=== PATIENT | male | born 1940 | race Caucasian/White ===

== ENCOUNTER → 2020-02-24 15:57 | Outpatient (BNVA) | payer MEDICARE, OTHER, SELFPAY | PROVIDERS: Family Provider Family Medicine; Visit Provider Specialist | DX: G30.9 Alzheimer's disease, unspecified (principal); F02.80 Dementia in other diseases classified elsewhere, unspecified severity, without behavioral disturbance, psychotic disturbance, mood disturbance, and anxiety; E85.4 Organ-limited amyloidosis; I68.0 Cerebral amyloid angiopathy; Z87.891 Personal history of nicotine dependence | CPT/HCPCS: 96116; 99213 ==

== ENCOUNTER 2020-05-28 12:22 | Emergency (ER) | payer MEDICARE, OTHER, SELFPAY ==
[2020-05-28] VITALS (7 sets, daily range): BP systolic 172–270; BP diastolic 90–140; PULSE 65–92; RESP 14–21; O2SAT 91–94; BMI 26.5
--- NOTE | 2020-05-28 12:10 | CTR_ITS ---
PROCEDURE INFORMATION: Exam: CT Head Without Contrast Exam date and time: 05/28/2020 12:10 PM Age: 79 years old Clinical indication: Coma or unconsciousness; Additional info: Stroke symptoms TECHNIQUE: Imaging protocol: Computed tomography of the head without contrast. Radiation optimization: All CT scans at this facility use at least one of these dose optimization techniques: automated exposure control; mA and/or kV adjustment per patient size (includes targeted exams where dose is matched to clinical indication); or iterative reconstruction. COMPARISON: CT head wo con* [id number] 12/29/2018 3:10 PM RADIATION DOSE METRICS: Total DLP (mGy-cm): 735.83 FINDINGS: Brain: There is an acute high density hematoma in the left cerebellar hemisphere with a volume of approximately 48 mL. There is significant mass effect with about 16 mm of cerebellar midline shift to the right side. There is generalized chronic atrophy with prominence of the ventricles and sulci. There is extensive decreased white matter density indicating chronic small vessel white matter ischemia. No definite intraventricular hemorrhage is seen. Cerebral ventricles: Ventricles are prominent due to chronic atrophy.. Bones/joints: Unremarkable. No acute fracture. Paranasal sinuses: Visualized sinuses are unremarkable. No fluid levels. Mastoid air cells: Visualized mastoid air cells are well aerated. Soft tissues: Unremarkable. CT/CT head wo con* [id number] IMPRESSION: There is a large acute left cerebellar hematoma measuring about 48 mL in volume with prominent mass effect and about 16 mm of cerebellar midline shift to the right side. Radiation Dose CTDIVOL = (mGy): DLP = 735.83 (mGy-cm)
--- NOTE | 2020-05-28 12:18 | ECG_ITS ---
[facility] Test Date: 2020-05-28 Pat Name: Chuy Hernandez Department: Room: Gender: Male Ribbon Tier: : 1940 Requested By: Thomas Coleman Order Number: [id number] Michelle MD: Momo Hayes M.D. Measurements Intervals [place] Rate: 70 P: 52 [place]: 189 QRS: -14 QRSD: 122 T: 39 QT: 421 QTc: 455 Interpretive Statements SINUS RHYTHM WITH OCCASIONAL VENTRICULAR PREMATURE COMPLEXES MODERATE INTRAVENTRICULAR CONDUCTION DELAY [110+ ms QRS DURATION] MODERATE ST DEPRESSION [0.05+ mV ST DEPRESSION] No previous ECG available for comparison Electronically Signed On 05-28-2020 19:24:56 BRINE SUPERVISOR by Momo Hayes M.D. [id number] f
--- NOTE | 2020-05-28 12:18 | XRR_ITS ---
PROCEDURE INFORMATION: Exam: XR Chest, 1 View Exam date and time: 05/28/2020 12:28 PM Age: 79 years old Clinical indication: Device placement; Other: Et and ng placement; Additional info: Dyspnea TECHNIQUE: Imaging protocol: XR of the chest Views: 1 view. COMPARISON: CR [place] Ribs RIGHT 04/11/2016 11:45 AM FINDINGS: Tubes, catheters and devices: An endotracheal tube is present with its tip at the T2-3 level about 10 cm above the ritika. A nasogastric tube is present with the tip projecting near the gas which soft Geodon marshall and should be advanced several cm further into the stomach. Lungs: See Pleural spaces finding. Pleural spaces: There is right basilar atelectasis with blunting of the right costophrenic angle. Mild atelectasis is present in the left base. Small effusion blunts the right costophrenic angle. Heart/Mediastinum: The cardiac silhouette is enlarged. Bones/joints: Unremarkable. XR/XR chest 1V portable [id number] IMPRESSION: 1. The tip of the endotracheal tube is 10 cm above the ritika. 2. The tip of the nasogastric tube is at the level of the GE junction and further advancement into the stomach is advised. 3. Right basilar atelectasis with small right effusion.
[2020-05-28 12:24] LABS: Glucose Point of Care 212 mg/dL (70-110)
[2020-05-28] MEDS: succinylcholine 20 mg/mL SDV 10mL 100 MG IVP (12:25)
--- NOTE | 2020-05-28 12:36 | PC.NURSE ---
time out completed at [address] english intubated at 1226 with 8.0 ett. Nurse administered etomidate (20mg) and succinylocholine (100mg) immediately prior to intubation.
[2020-05-28 12:37] LABS: ABG PCO2 45.5 mmHg (35-45); Base Excess ABG 2.3 mmol/L (-2.0-2.0); Blood Gas Allen Test Pos; Blood Gas Operator Identificat MONRO; Blood Gas Sample Site Radial, right; Blood Gas Sample Type Arterial; Carboxyhemoglobin 0.4 %THgb (0.4-20.1); HCO3 ABG 27.9 mmol/L (22-26); HGB O2 Sat 99.7 % (95-100); Ionized Calcium Level - ABG 1.2 mmol/L (1.1-1.4); Methemoglobin 0.3 % (0.4-1.5); Oxygen Device AMBU; Oxygen Saturation ABG > 100.0; Potassium Level - ABG 3.2 mmol/L (3.5-5.0); Total Hemoglobin 15.7 g/dL (14-18)
[2020-05-28 12:39] LABS: Basophils # 0.1 10^3/uL (0.0-0.1); Basophils % 0.5 %; Eosinophils # 0.2 10^3/uL (0.0-0.8); Eosinophils % 1.9 %; Hematocrit 44.6 % (42.0-52.0); Hemoglobin 14.9 g/dL (11.7-16.6); Lymphocytes # 1.5 10^3/uL (0.8-4.8); Lymphocytes % 11.8 %; Mean Corpuscular HGB Conc 33.4 g/dL (30.0-36.0); Mean Corpuscular Hemoglobin 30.7 pg (28.0-34.0); Monocytes # 0.9 10^3/uL (0.2-0.9); Monocytes % 6.9 %; Neutrophils # 10.01 10^3/uL (1.8-7.7); Neutrophils % 78.4 %; Nucleated Red Blood Cells % 0 %; Platelet Count 239 10^3/cmm (130-400); Red Blood Count 4.85 10^6/uL (4.1-5.3); Red Cell Distribution Width 12.7 % (12.1-15.1); White Blood Count 12.8 10^3/uL (4.0-10.0)
[2020-05-28] MEDS: propofol 1,000 MG/100 ML INJ 16 MG (12:40)
[2020-05-28] MEDS: nicardipine 20 MG/200 ML PREMIX 50 MG IV (12:40)
--- NOTE | 2020-05-28 12:42 | W.ED.NEUROSD ---
HPI - Neuro Symptoms/Deficit General: Chief Complaint: Neuro Symptoms/Deficit Stated Complaint: stroke alert History of Present Illness: HPI Narrative: The patient is a 79-year-old male with past medical history TIAs, diabetes, hypertension who comes to the ER today with a stroke alert. He is generally weak with a right fixed gaze minimally responsive and sleepy. He has a left-sided mild facial droop and general weakness in all extremities left upper extremity is the most week. NIH score 24 on arrival. He was intubated shortly after the CT because he was satting 90% on 10 L. Onset of symptoms [address] shows hemorrhagic left-sided cerebellar stroke with some shift Time: 11:00 Timing confirmed by: family member Severity: severe Review of Systems General: Reports: ROS unobtainable due to endotracheal tube and ROS unobtainable due to medical condition PFSH ED PFSH: Family History Other No pertinent family history Social History Smoking and tobacco status: former smoker History of recent travel: No NIH stroke score NIHSS: Level Of Consciousness - 1a: 2 Level Of Consciousness Questions - 1b: One Correct Level Of Consciousness Commands - 1c: One Correct Best Gaze - 2: Forced Deviation Visual Haines - 3: No Visual Loss Facial Palsy - 4: Minor Paralysis Motor Arm Right - 5: Effort Against Reading Motor Arm Left - 5: No Effort Against Reading Motor Leg Right - 6: Effort Against Reading Motor Leg Left - 6: Effort Against Reading Limb Ataxia - 7: Present In Two Limbs Sensory - 8: Normal Best Language - 9: Severe Aphasia Dysarthia - 10: Severe Dysarthia Extinction And Inattention - 11: 2 Score: Total Score: 24 Physical Exam Narrative: EXAM NARRATIVE: The patient has a hemorrhagic stroke with GCS of 24 intubated after arrival. Const: GENERAL APPEARANCE: in distress, lethargic and ill appearing ORIENTATION/CONSCIOUSNESS: Yes lethargic HENMT: COMMON NORMALS: normocephalic, external ears normal and Normal external nose present HEAD & SCALP: normal to inspection and normocephalic NOSE: Normal external nose present EXTERNAL EAR: Yes external ears normal MOUTH: Normal oral and palatal mucosa present THROAT: posterior oropharynx normal Eye: OTHER: Fixed right gaze. Horizontal nystagmus present Neck/C-Spine: COMMON NORMALS: full ROM, no lymphadenopathy, no meningeal signs and no JVD GENERAL: Yes normal visual inspection Lymph: LYMPHATIC: no lymphadenopathy noted Chest: COMMONS NORMALS: normal inspection of the chest and normal palpation of entire chest wall Resp: OTHER: Rapidly decreasing respiratory effort on arrival. He was in respiratory distress satting in the upper 80s on 10 L of oxygen within minutes after arrival. He was intubated on first attempt Cardio: COMMON NORMALS: no JVD, regular rate, regular rhythm, S1 normal heart sound present, S2 normal heart sound present and Peripheral pulses 2+ throughout RATE: regular rate RHYTHM: regular rhythm HEART SOUNDS: S1 normal heart sound present and S2 normal heart sound present PERIPHERAL PULSES: Peripheral pulses 2+ throughout GI: COMMON NORMALS: Normal to inspection, nondistended, normoactive bowel sounds present, Soft to palpation, non-tender and no masses INSPECTION: Yes normal to inspection PALPATION: Yes Soft to palpation : COMMON NORMALS: Yes no CVA tenderness BLADDER/KIDNEY EXAM: Yes no CVA tenderness Back/Pelvis: COMMON NORMALS: no CVA tenderness, thoracic and lumbar spine normal to inspection, no thoracic nor lumbar tenderness and thoraco-lumbar ROM normal Extremity: COMMON NORMALS: normal to inspection, full ROM, capillary refill normal, no joint enlargement and no pedal edema GENERAL: Yes normal exam except as noted Neuro: GALILEO COMA SCALE: document GCS findings Galileo coma scale eye opening: Spontaneous Galileo coma scale verbal response: Sounds Browning coma scale motor response: Localising Galileo coma scale total score: 11 SENSORIUM/ORIENTATION: Yes lethargic MENINGEAL SIGNS: Yes no meningeal signs OTHER: The patient has a right-sided severe cerebellar hemorrhagic stroke. He has a fixed right gaze with no horizontal nystagmus. All extremities are weak. He is lethargic. He has almost no movement against gravity. Shortly after arrival he declined in mental status and needed to be intubated. He was tube with a 8 oh ET tube at 22 at the teeth on first attempt satting well. Propofol drip, mannitol, Cardene drip Skin: COMMON NORMALS: no rashes or lesions noted GENERAL SKIN EXAM: no rashes or lesions noted Procedures Intubation Time out performed: Yes sedative: Etomidate Mg Given: 20 paralytic: Succinylcholine Mg Given: 100 Laryngoscope: fiber optic video scope ET Tube Size: 8 ET Tube Uncuffed: Yes Tube Secured Depth (cm): 22 Tube Secured Location: teeth Tube Placement Confirmation: visualized tube passing through cords Patient Tolerated Procedure: well Intubation Complications: none Course Vital Signs: Vital signs: Vital Signs Pulse Rate 92 05/28/20 12:58 Respiratory Rate 19 H 05/28/20 12:58 Blood Pressure 180/90 05/28/20 12:58 Pulse Oximetry 93 05/28/20 12:58 MDM - Neuro Symptoms/Deficit MDM Narrative: Medical decision making narrative: The patient has a severe right-sided cerebellar CVA. Discussed with Patrick who recommended transfer. The helicopters are not flying to [place]. Discussed with Dr. Tuttle furnace combustion analyst at [facility] who accepts to neuro ICU. He will be flown there. He has had a systolic blood pressure of 240 on arrival. He was started on Cardene, mannitol, propofol IV. He was intubated on first attempt 8 oh ET tube 22 at the teeth with ease. He has been satting well and his pressures are trending down on the Cardene drip. Helicopter team has arrived and is ready to transport. He is currently in stable but critical condition Lab Data: Labs: Lab Results 05/28/20 05/28/20 05/28/20 Range/Units 11:50 11:50 11:50 WBC 12.8 H (4.0-10.0) 10^3/ uL RBC 4.85 (4.1-5.3) 10^6/u L Hgb 14.9 (11.7-16.6) g/dL Hct 44.6 (42.0-52.0) % MCV 92.0 (80-94) fL MCH 30.7 (28.0-34.0) pg MCHC 33.4 (30.0-36.0) g/dL RDW 12.7 (12.1-15.1) % Plt Count 239 (130-400) 10^3/c mm MPV 11.0 H (7.4-10.4) fL Neut % (Auto) 78.4 % Lymph % (Auto) 11.8 % Angelina % (Auto) 6.9 % Eos % (Auto) 1.9 % Baso % (Auto) 0.5 % Neut # (Auto) 10.01 H (1.8-7.7) 10^3/u L Lymph # (Auto) 1.5 (0.8-4.8) 10^3/u L Angelina # (Auto) 0.9 (0.2-0.9) 10^3/u L Eos # (Auto) 0.2 (0.0-0.8) 10^3/u L Baso # (Auto) 0.1 (0.0-0.1) 10^3/u L Nucleated RBC % (a uto) 0 % Nucleated RBCs # 0.0 /100WBC PT 15.70 H (12.1-14.9) SECO NDS INR 1.21 H (0.8-1.2) APTT 24.3 (23.9-36.7) SECO NDS Specimen Type Sample Site ABG pH (7.35-7.45) ABG pCO2 (35-45) mmHg ABG pO2 (80.0-100.0) mmH g ABG HCO3 (22-26) mmol/L ABG O2 Saturation ABG Base Excess (-2.0-2.0) mmol/ L Santi Test A-a O2 Gradient Hematocrit (42-52) % Hgb O2 Saturation (95-100) % Carboxyhemoglobin (0.4-20.1) %THgb Methemoglobin (0.4-1.5) % Total Hemoglobin (14-18) g/dL Ionized Calcium (1.1-1.4) mmol/L O2 Delivery Device O2 Liters/Min % Account Review Specialist ID Sodium 137 (136-145) mmol/L Potassium 3.1 L (3.5-5.1) mmol/L Chloride 99 (98-107) mmol/L Carbon Dioxide 23 (22-29) mmol/L Anion Gap 18.1 (5-19) BUN 15 (8-23) mg/dL Creatinine 0.6 L (0.7-1.2) mg/dL GFR Calculation Not Reportable Glucose 235 H (65-115) mg/dL POC Glucose (70-110) mg/dL Calculated Osmolal ity 292 (285-295) mOsm/k g Calcium 9.3 (8.5-10.5) mg/dL Total Bilirubin 0.4 (0.15-1.2) mg/dL AST 16 (0-40) U/L ALT 14 (0-41) U/L Alkaline Phosphata se 78 (40-130) IU/L Total Protein 8.5 (6.6-8.7) g/dL Albumin 4.4 (3.5-5.2) g/dL Globulin 4.1 (1.3-4.6) g/dL 05/28/20 05/28/20 Range/Units 12:20 12:25 WBC (4.0-10.0) 10^3/ uL RBC (4.1-5.3) 10^6/u L Hgb (11.7-16.6) g/dL Hct (42.0-52.0) % MCV (80-94) fL MCH (28.0-34.0) pg MCHC (30.0-36.0) g/dL RDW (12.1-15.1) % Plt Count (130-400) 10^3/c mm MPV (7.4-10.4) fL Neut % (Auto) % Lymph % (Auto) % Angelina % (Auto) % Eos % (Auto) % Baso % (Auto) % Neut # (Auto) (1.8-7.7) 10^3/u L Lymph # (Auto) (0.8-4.8) 10^3/u L Angelina # (Auto) (0.2-0.9) 10^3/u L Eos # (Auto) (0.0-0.8) 10^3/u L Baso # (Auto) (0.0-0.1) 10^3/u L Nucleated RBC % (a uto) % Nucleated RBCs # /100WBC PT (12.1-14.9) SECO NDS INR (0.8-1.2) APTT (23.9-36.7) SECO NDS Specimen Type Arterial Sample Site Radial, right ABG pH 7.40 (7.35-7.45) ABG pCO2 45.5 H (35-45) mmHg ABG pO2 465.0 H (80.0-100.0) mmH g ABG HCO3 27.9 H (22-26) mmol/L ABG O2 Saturation > 100.0 ABG Base Excess 2.3 H (-2.0-2.0) mmol/ L Santi Test Pos A-a O2 Gradient Not Reportable Hematocrit 48.0 (42-52) % Hgb O2 Saturation 99.7 (95-100) % Carboxyhemoglobin 0.4 (0.4-20.1) %THgb Methemoglobin 0.3 L (0.4-1.5) % Total Hemoglobin 15.7 (14-18) g/dL Ionized Calcium 1.2 (1.1-1.4) mmol/L O2 Delivery Device Ambu O2 Liters/Min 15.0 % Account Review Specialist ID [place]ro Sodium 144.0 H (136-145) mmol/L Potassium 3.2 L (3.5-5.1) mmol/L Chloride (98-107) mmol/L Carbon Dioxide (22-29) mmol/L Anion Gap (5-19) BUN (8-23) mg/dL Creatinine (0.7-1.2) mg/dL GFR Calculation Glucose 240.0 H (65-115) mg/dL POC Glucose 212 H (70-110) mg/dL Calculated Osmolal ity (285-295) mOsm/k g Calcium (8.5-10.5) mg/dL Total Bilirubin (0.15-1.2) mg/dL AST (0-40) U/L ALT (0-41) U/L Alkaline Phosphata se (40-130) IU/L Total Protein (6.6-8.7) g/dL Albumin (3.5-5.2) g/dL Globulin (1.3-4.6) g/dL Critical Care Time Critical Care Time: Critical Care Time: Yes Total Critical Care Time: 50 Attestation: Right-sided CVA, blood pressure and drip control. Intubation. Transfer to [facility] and helicopter arrangements. Discussing with family about critical care Discharge Plan Discharge Patient Disposition: Xfer Other Clinical Impression: Cerebrovascular accident, hemorrhagic Condition: Stable Referrals: Darin Yuen MD [Primary Care Provider] - Coding Level of Care Code ED Fish Cake Maker for Leida Villarreal
[2020-05-28 12:48] LABS: INR 1.21 (0.8-1.2)
[2020-05-28 12:49] LABS: Partial Thromboplastin Time 24.3 SECONDS (23.9-36.7)
[2020-05-28 12:58] LABS: Alanine Aminotransferase 14 U/L (0-41); Albumin Level 4.4 g/dL (3.5-5.2); Alkaline Phosphatase 78 IU/L (40-130); Blood Urea Nitrogen 15 mg/dL (8-23); Calcium 9.3 mg/dL (8.5-10.5); Carbon Dioxide 23 mmol/L (22-29); Chloride 99 mmol/L (98-107); Globulin 4.1 g/dL (1.3-4.6); Glucose 235 mg/dL (65-115); Osmolality Calculated 292 mOsm/kg (285-295); Sodium 137 mmol/L (136-145); Total Bilirubin 0.4 mg/dL (0.15-1.2); Total Protein 8.5 g/dL (6.6-8.7)
[2020-05-28 12:59] LABS: Anion Gap 18.1 (5-19); Aspartate Amino Transferase 16 U/L (0-40); Potassium 3.1 mmol/L (3.5-5.1)
== END 2020-05-28 13:30 | disposition other institution (70) ==
PROVIDERS: Emergency Provider Family Medicine; PCP Family Medicine
DX: I62.9 Nontraumatic intracranial hemorrhage, unspecified (principal); Z87.891 Personal history of nicotine dependence
CPT/HCPCS: 31500; 36416; 36600; 51702; 70450; 71045; 80051; 80053; 82330; 82805; 82962; 83605; 85025; 85610; 85730; 93005; 94002; 94799; 96365; 96367; 96375; 99291; J0330; J2704; J3490; J7799